=== PATIENT | female | born 1935 | race Caucasian/White ===

== ENCOUNTER 2017-06-03 08:22 | Outpatient (CLI) | payer MEDICARE | END 2017-06-03 08:23 | disposition short-term general hospital (02) | LOC: EMS 08:22 | PROVIDERS: ATTEND Surgery | DX: R55 Syncope and collapse (principal); R42 Dizziness and giddiness; R15.9 Full incontinence of feces | CPT/HCPCS: A0425; A0427; A0888 ==

== ENCOUNTER 2021-02-13 14:21 | Outpatient (CLI) | payer MEDICARE ==
--- NOTE | 2021-02-13 16:00 | Ultrasound Report ---
PROCEDURE: Duplex Lwr Ext Arterial Bilat INDICATIONS: PVD, RIGHT FOOT WOUND TECHNIQUE: Color and pulse Doppler interrogation was performed of both lower extremity arterial systems, with im age documentation. COMPARISON: None FINDINGS: Right lower extremity: Common femoral artery: 137 cm/sec, with triphasic flow. Deep femoral artery: 85 cm/sec, with biphasic flow. Proximal superficial femoral artery: 57 cm/sec, with biphasic flow. Mid superficial femoral artery: 64 cm/sec, with biphasic flow. Distal superficial femoral artery: 25 cm/sec, with monophasic flow. Popliteal artery: 38 cm/sec, with monophasic flow. Posterior tibial artery: 53 cm/sec, with monophasic flow. Anterior tibial artery/dorsalis pedis: 43 cm/sec, with monophasic flow. Hamilton-scale imaging description: Mild diffuse plaque Left lower extremity: Common femoral artery: 130 cm/sec, with biphasic flow. Deep femoral artery: 215 cm/sec, with biphasic flow. Proximal superficial femoral artery: 102 cm/sec, with biphasic flow. Mid superficial femoral artery: 137 cm/sec, with biphasic flow. Distal superficial femoral artery: 132 cm/sec, with biphasic flow. Popliteal artery: 102 cm/sec, with biphasic flow. Posterior tibial artery: 48 cm/sec, with biphasic flow. Anterior tibial artery/dorsalis pedis: 125 cm/sec, with biphasic and monophasic flow. Hamilton-scale imaging description: Mild diffuse IMPRESSION: 1. Findings suggestive of hemodynamic significant right-sided outflow stenosis. 2. 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 Reviewed by: Benjamin Ricardo MD on 02/13/2021 3:59 PM PST Approved by: Benjamin Ricardo MD on 02/13/2021 3:59 PM PST Station ID: [id number]
== END 2021-02-13 14:22 | disposition home or self-care (01) ==
LOC: DI 14:21
PROVIDERS: ATTEND Nurse Practitioner
DX: S91.301A Unspecified open wound, right foot, initial encounter (principal); R23.4 Changes in skin texture; I70.202 Unspecified atherosclerosis of native arteries of extremities, left leg; I70.201 Unspecified atherosclerosis of native arteries of extremities, right leg
CPT/HCPCS: 93925

== ENCOUNTER 2022-02-02 17:59 | Emergency (ER) | payer MEDICARE ==
--- NOTE | 2022-02-02 19:08 | ED Physician Documentation ---
History of Present Illness - Stated complaint Stated Complaint: GLF/HEAD INJ - Chief complaint Chief Complaint: Trauma Hd/Nk - History obtained from History obtained from: Patient, EMS - History of Present Illness Timing: Today Pain level max: 6 Pain level now: 2 - Additonal information Additional information: Patient states that she was walking up the steps to get into the [employer] today when she excellently tripped and fell striking her head on the concrete. No loss of consciousness. No vomiting. Does not take any blood thinners. No seizure activity. No vision changes. No neck or back pain. No numbness or tingling. No hip pain, no knee pain. No shoulder, elbow or hand pain. Does have an abrasion to the left hand. Unknown last tetanus. Review of Systems Constitutional: denies: Fever, Chills Nose: denies: Rhinorrhea / runny nose, Congestion Cardiac: denies: Palpitations Respiratory: denies: Dyspnea, Cough GI: denies: Abdominal Pain, Vomiting, Diarrhea : denies: Dysuria, Frequency, Hesitancy Skin: denies: Rash Musculoskeletal: denies: Neck pain, Back pain Neurologic: denies: Focal weakness, Numbness, Confused, Altered mental status PD PAST MEDICAL HISTORY - Past Medical History Cardiovascular: Hypertension Endocrine/Autoimmune: Type 2 diabetes - Present Medications Home Medications: Ambulatory Orders Medication Instructions Recorded Confirmed Aspirin [[place]] 81 mg PO BID 02/04/21 06/12/21 Atorvastatin [Lipitor] 2 tab HS 02/04/21 06/12/21 Cholecalciferol [Vitamin D3] 1 tab DAILY 02/04/21 06/12/21 Denosumab [Prolia] 1 each PRN PRN 02/04/21 06/12/21 Glipizide [Glipizide ER] 5 mg PO DAILY 02/04/21 06/12/21 Insulin NPH Human Isophane 18 units DAILY 02/04/21 06/12/21 [Humulin N Kwikpen] Insulin NPH Human Isophane 22 units HS 02/04/21 06/12/21 [Humulin N Kwikpen] Lisinopril [Zestril] 20 mg PO DAILY 02/04/21 06/12/21 Metoprolol Succinate [Toprol Xl] 25 mg PO HS 02/04/21 06/12/21 Clopidogrel [Plavix] 75 mg PO DAILY 04/09/21 06/12/21 - Allergies Allergies/Adverse Reactions: Allergies Allergy/AdvReac Type Severity Reaction Status Date / Time iodine Allergy Anaphylaxis Verified 02/02/22 18:05 PD ED PE NORMAL - Vitals Vital signs reviewed: Yes - General General: Alert and oriented X 3, No acute distress, Well developed/nourished - HEENT HEENT: PERRL, EOMI, Ears normal, Moist mucous membranes, Pharynx benign, Other (Patient with a large periorbital hematoma, left eye, supraorbital ridge. No palpable skull fractures. Otherwise normal examination of the head and face.) - Neck Neck: Other (No tenderness to palpation. No step-off or deformity) - Cardiac Cardiac: RRR, Strong equal pulses - Respiratory Respiratory: No respiratory distress, Clear bilaterally - Abdomen Abdomen: Soft, Non tender, Non distended - Back Back: No spinal TTP - Derm Derm: Warm and dry - Extremities Extremities: No deformity, Normal ROM s pain - Neuro Neuro: Alert and oriented X 3, director surface transportation 2-12 intact, No motor deficit, No sensory deficit, Normal speech Eye Opening: Spontaneous Motor: Obeys Commands Verbal: Oriented GCS Score: 15 - Psych Psych: Normal mood, Normal affect Results - Vitals Vitals: Vital Signs - 24 hr 02/02/22 02/02/22 18:05 20:26 Temperature 37.2 C 37.0 C Heart Rate 80 70 Respiratory 16 16 Rate Blood Pressure 185/83 H 164/68 H O2 Saturation 100 97 Oxygen O2 Source Room air - Rads (name of study) CT head Radiology: Final report received, See rad report CT maxillofacial Radiology: Final report received, See rad report Ct c-spine Radiology: Final report received, See rad report PD MEDICAL DECISION MAKING - ED course Complexity details: reviewed results, re-evaluated patient, considered differential, d/w patient, d/w family ED course: 86-year-old female status post a ground-level fall. Has a forehead contusion. No acute findings on head CT, maxillofacial CT, CT C-spine. Ambulating without difficulty. No other apparent injuries. Tdap given. Wounds cleansed and bandaged to the left palm. Using the hands without difficulty. Ambulating without difficulty. Patient counseled regarding signs and symptoms for which I believe and urgent re-evaluation would be necessary. Patient with good understanding of and agreement to plan and is comfortable going home at this time This document was made in part using voice recognition software. While efforts are made to proofread this document, sound alike and grammatical errors may occur. Departure - Departure Disposition: 01 Home, Self Care Clinical Impression: Closed head injury Qualifiers: Encounter type: initial encounter Qualified Code(s): S09.90XA - Unspecified injury of head, initial encounter Periorbital contusion of left eye Qualifiers: Encounter type: initial encounter Qualified Code(s): S05.12XA - Contusion of eyeball and orbital tissues, left eye, initial encounter Condition: Good Instructions: ED Head Injury Closed Follow-Up: SOHAN MELENDEZ MD [Primary Care Provider] - Within 1 week Comments: Please follow-up with your doctor for further care. Your head CT, maxillofacial CT and cervical spine CT do not show any acute abnormalities today. Please return if you worsen. Discharge Date/Time: 02/02/22 20:26
--- NOTE | 2022-02-02 19:54 | CT Report ---
PROCEDURE: HEAD WO INDICATIONS: fall, head/neck/facial injury TECHNIQUE: Noncontrast 4.5 mm thick angled axial sections acquired from the foramen magnum to the vertex. For r adiation dose reduction, the following was used: automated exposure control, adjustment of mA and/or kV according to patient size. COMPARISON: None. FINDINGS: Image quality: Degraded by motion CSF spaces: Basal cisterns are patent. Lateral ventricles are symmetric. Volume: Vascular calcifications. Periventricular white matter disease is commonly seen with chronic m icroangiopathy. Volume loss is present. These findings are mild to moderate. Brain: No intracranial hemorrhage. Hamilton-white differentiation is grossly maintained. Craniofacial structures: Craniofacial structures separately dictated. IMPRESSION: No acute intracranial abnormality. Craniofacial findings separately dictated. Reviewed by: Glen Ortega MD on 02/02/2022 7:53 PM PST Approved by: Glen Ortega MD on 02/02/2022 7:53 PM PST Station ID: [id number]
--- NOTE | 2022-02-02 19:57 | CT Report ---
PROCEDURE: MAXILLOFACIAL WO INDICATIONS: fall, head/neck/facial injury TECHNIQUE: Noncontrast 1.5 mm thick axial images acquired from the mandible through the frontal sinuses, with co domonique and sagittal reformatting. For radiation dose reduction, the following was used: automated ex posure control, adjustment of mA and/or kV according to patient size. COMPARISON: None. FINDINGS: Image quality: Excellent Bones: No displaced fracture. Orbital martinez are intact. Nasal bone and septum are intact, with age-in determinate rightward deviation of the nasal septum. Mandible is intact. Zygomatic arches and pterygo id plates are intact. No skull base fracture. Sinuses and mastoids: Mild paranasal sinus mucosal thickening. Soft tissues: Left supraorbital soft tissue contusion and small hematoma. The adjacent globe is gross ly intact. Brain: Separately dictated IMPRESSION: No displaced fracture. Left supraorbital soft tissue contusion and hematoma. Reviewed by: Glen Ortega MD on 02/02/2022 7:56 PM PST Approved by: Glen Ortega MD on 02/02/2022 7:56 PM PST Station ID: [id number]
--- NOTE | 2022-02-02 20:00 | CT Report ---
PROCEDURE: CERVICAL SPINE WO INDICATIONS: fall, head/neck/facial injury TECHNIQUE: Noncontrast 3 mm thick sections acquired from the skull base to the T4 level. Sagittal and coronal r eformats were then constructed. For radiation dose reduction, the following was used: automated exp osure control, adjustment of mA and/or kV according to patient size. COMPARISON: None. FINDINGS: Image quality: Good Bones: Mild to moderate spondylosis, particularly in the lower cervical spine. Significant calcified pannus around the odontoid articulation. No acute fracture or traumatic subluxation. Likely chronic s mall bone fragment adjacent to the C7 spinous process. Soft tissues: Vascular calcifications. No prevertebral soft tissue thickening. IMPRESSION: No acute fracture or traumatic subluxation of the cervical spine. Degenerative and likely chronic fin dings as above. Reviewed by: Glen Ortega MD on 02/02/2022 7:59 PM PST Approved by: Glen Ortega MD on 02/02/2022 7:59 PM PST Station ID: [id number]
[2022-02-02 20:27] VITALS: BP 164/68
== END 2022-02-02 20:26 | disposition home or self-care (01) ==
LOC: EDUNIT# → ED 17:59
DX: S60.512A Abrasion of left hand, initial encounter (principal); S00.12XA Contusion of left eyelid and periocular area, initial encounter; S09.90XA Unspecified injury of head, initial encounter; W10.8XXA Fall (on) (from) other stairs and steps, initial encounter; Y93.89 Activity, other specified; Y92.89 Other specified places as the place of occurrence of the external cause
CPT/HCPCS: 99282; 99284

== ENCOUNTER → 2022-02-02 | Outpatient (CLI) | payer MEDICARE | END | disposition critical access hospital (66) | LOC: EMS 17:40 | DX: S00.12XA Contusion of left eyelid and periocular area, initial encounter (principal); S60.812A Abrasion of left wrist, initial encounter; W01.198A Fall on same level from slipping, tripping and stumbling with subsequent striking against other object, initial encounter; Y92.29 Other specified public building as the place of occurrence of the external cause | CPT/HCPCS: A0425; A0429 ==